=== PATIENT | female | born 1965 | race Caucasian/White ===

== ENCOUNTER → 2017-05-21 10:21 | Outpatient (CLI) | payer OTHER, SELFPAY ==
--- NOTE | 2017-05-21 10:35 | MM_ITS ---
MM Dig screening mamm BI w/CAD CAD Screening ORDERING PHYSICIAN : Boy Nguyen PATIENT AGE: 52 years GENDER: Female COMPARISON: Previous mammograms: February 2012 and 2012, January 2016, 2014. 2016 INDICATION: Routine screening. No new complaints. 52-year-old previous stereotactic biopsy left breast TECHNIQUE: Standard CC and MLO images were obtained. R2 CAD reviewed. FINDINGS: Moderate asymmetry of the breast again noted but no significant change since prior studies which are very helpful in this case. RIGHT BREAST:The fibroglandular tissue at the superior right breast again noted and similar to previous studies. LEFT BREAST:. No new areas of concern. Follow-up in one year. The minimal area of asymmetric density deep breast central and lateral on cc view is unchanged tiny metallic marker from previous stereotactic biopsy noted towards upper-outer quadrant left breast IMPRESSION: . No Significant New Areas of concern. No significant lesions evident radiographically. Follow-up in one year recommended . Moderate breast density with moderate asymmetry BI-RADS Category: 2 Benign Finding(s) RECOMMENDED FOLLOW-UP: 1YR - 1 YEAR FOLLOW-UP (A letter has been sent to the patient regarding results of the study.) A
== END ==
PROVIDERS: Family Provider Internal Medicine; PCP Internal Medicine; Visit Provider Internal Medicine
DX: Z12.31 Encounter for screening mammogram for malignant neoplasm of breast (principal)
CPT/HCPCS: 77067

== ENCOUNTER → 2017-06-16 16:42 | Outpatient (REF) | payer OTHER, SELFPAY ==
[2017-06-16 17:49] LABS: Potassium 4.1 mmoL/L (3.5-5.1)
[2017-06-18 12:18] LABS: Vitamin D 25 Hydroxy 30.6 ng/mL (30.0-100.0)
== END ==
LOC: LAB 16:42
PROVIDERS: Visit Provider Internal Medicine
DX: E87.6 Hypokalemia (principal); E83.32 Hereditary vitamin D-dependent rickets (type 1) (type 2); E55.9 Vitamin D deficiency, unspecified
CPT/HCPCS: 82652; 84132

== ENCOUNTER 2017-07-09 09:05 | Day surgery (SDC) | payer OTHER, SELFPAY ==
[2017-07-09] VITALS (16 sets, daily range): BP systolic 100–145; BP diastolic 49–85; PULSE 54–78; RESP 10–18; TEMP 36.7–36.8; O2SAT 95–100; BMI 28.3
--- NOTE | 2017-07-09 10:39 | HMH.SCOPE ---
- Procedure: Date: 07/09/17 Procedure Performed:: Colonoscopy Indications:: Screening Performing Provider:: Louis Gold MD Referring Provider:: Dr. Cabezas Sedation:: IV sedation with 9 mg of Versed and 200 mcg of fentanyl Procedure:: After informed consent was obtained, the patient was taken to the endoscopy suite. IV sedation ensued after she was transferred to the left lateral decubitus position. Digital rectal exam revealed no significant abnormality. The colonoscope was placed in addition. The entire colon was evaluated. Bowel preparation was moderate with irrigation and suctioning used to improve visualization. Moderate spasticity and tortuosity were encountered. No colonic masses or polypoid lesions were seen. The mucosa appeared normal throughout. The colonoscope was carefully removed and the patient was transferred to recovery. Findings:: Moderate bowel preparation Moderate spasticity Moderate tortuosity No mass lesions or polypoid lesions noted Specimens:: None Recommendations:: Repeat colonoscopy in 3-5 years secondary to moderate preparation, spasticity, and tortuosity. Complications:: No immediate Estimated blood obtained (mL): 0
== END 2017-07-09 11:28 | disposition home or self-care (01) ==
LOC: OUTP 09:06
PROVIDERS: Family Provider Internal Medicine; PCP Internal Medicine; Visit Provider Surgery
PROC: 0DJD8ZZ Inspection of Lower Intestinal Tract, Via Natural or Artificial Opening Endoscopic (ICD-10-PCS; CPT 45378; principal; 2017-07-09 09:30)
DX: Z12.11 Encounter for screening for malignant neoplasm of colon (principal); K56.2 Volvulus; K58.9 Irritable bowel syndrome, unspecified
CPT/HCPCS: 45378; 99152; 99153; J2405

== ENCOUNTER → 2019-03-14 08:41 | Outpatient (CLI) | payer OTHER, SELFPAY ==
--- NOTE | 2019-03-14 08:59 | XR_ITS ---
PROCEDURE: XR DEXA AXIAL SKELETON CLINICAL HISTORY: POST MENOPAUSAL COMPARISON: No exams were available for comparison FINDINGS: L1-L4 density is 1.343 grams/centimeters sq with a T-score of 1.4. Lowest hip density is in the left femoral neck at 1.080 grams/centimeters sq with a T-score of 0.3 IMPRESSION: Normal bone density. Suggest follow-up exam in a March 2021 Dictated by: River Morgan MD 03/14/2019 20:21 Electronically signed by River Morgan MD in [facility] 03/14/2019 20:21
== END ==
PROVIDERS: PCP Internal Medicine; Visit Provider Internal Medicine
DX: Z78.0 Asymptomatic menopausal state (principal)
CPT/HCPCS: 77080

== ENCOUNTER → 2020-02-22 08:26 | Outpatient (CLI) | payer OTHER, SELFPAY ==
--- NOTE | 2020-02-22 08:31 | XR_ITS ---
PROCEDURE: XR FOOT WT BEARING LT 3V CLINICAL INDICATION: pain COMPARISON: No exams were available for comparison FINDINGS: Prior bunionectomy with a screw at the distal aspect of the 1st metatarsal. Borderline pes planus. Mild osteoarthritic talonavicular joint. Other findings:None. IMPRESSION: Postsurgical changes with mild pes planus Dictated by: River Morgan MD 02/22/2020 16:18 River Morgan MD in [facility] 02/22/2020 16:18
--- NOTE | 2020-02-22 08:31 | XR_ITS ---
PROCEDURE: XR FOOT WT BEARING RT 3V CLINICAL INDICATION: pain COMPARISON: No exams were available for comparison FINDINGS: No fracture or dislocation. No lytic or blastic change. There is normal mineralization. Hallux valgus with osteoarthritis of the 1st MTP joint and bunion formation at the distal aspect of the 1st metatarsal. Other findings:Borderline pes planus IMPRESSION: Hallux valgus with osteoarthritis of the 1st MTP joint and bunion formation at the distal aspect of the 1st metatarsal. Dictated by: River Morgan MD 02/22/2020 16:17 River Morgan MD in [facility] 02/22/2020 16:17
== END ==
PROVIDERS: PCP Internal Medicine; Visit Provider Podiatrist
DX: M79.672 Pain in left foot (principal); M79.671 Pain in right foot
CPT/HCPCS: 73630

== ENCOUNTER → 2021-02-07 19:17 | Outpatient (CLI) | payer OTHER, SELFPAY | PROVIDERS: Visit Provider Nurse Practitioner Family | DX: Z20.822 Contact with and (suspected) exposure to COVID-19 (principal); J02.9 Acute pharyngitis, unspecified | CPT/HCPCS: C9803; U0003; U0005 ==

== ENCOUNTER → 2021-02-25 10:40 | Outpatient (CLI) | payer OTHER, SELFPAY ==
--- NOTE | 2021-02-25 10:49 | ECG_ITS ---
APPROVED REPORT Exam: Resting ECG HR:63 bpm ECG Measurements Heart Rate 63 AXES MN 150 P 25 QRSd 80 QRS 23 QT 412 T 25 QTc 421 Conclusion Normal sinus rhythm Normal ECG Electronically signed by : Boy Nguyen MD 02/25/2021 11:53:39
== END ==
PROVIDERS: PCP Internal Medicine; Visit Provider Internal Medicine
DX: R07.9 Chest pain, unspecified (principal); R00.2 Palpitations
CPT/HCPCS: 93005

== ENCOUNTER → 2021-03-06 07:57 | Outpatient (CLI) | payer OTHER, SELFPAY ==
--- NOTE | 2021-03-06 | CA_ITS ---
APPROVED REPORT Exam: Exercise Treadmill Technologist: Sapphire Martinez Ht: 5 ft 3 in Wt: 172 lbs BSA: 1.81 m2 HR: 70 bpm BP: 140/90 mmHg Indications: Palpitations, Atypical Chest Pain Medical History Medications: MeLOXICAM,,,,, Diclofenac,,,,, Stress Test Details Test: Nilson HR Resting HR: 80 bpm Max Heart Rate (APMHR): 164.689109 bpm Max HR Achieved: 149 bpm Target HR (85% APMHR): 139.646877 bpm % of APMHR: 90.85 Recovery HR: 88 bpm BP Resting BP: 140.0/90.0 mmHg Max BP: 165.0/92.0 mmHg Recovery BP: 141.0/101.0 mmHg ECG Resting ECG: Normal sinus rhythm Clinical Exercise duration: 09:00 min Highest Stage Achieved: Exercise capacity: 10.1 METs Stress ECG Conclusion Patient exercised 9:00 on Nilson Protocol. Test stopped due to untied shoe lace. Symptoms: Mild shortness of air and fatigue. No chest pain. Arrythmias/Ectopy: None ST-T Changes: Normal ST response to exercise. Conclusion: Normal GXT. GXT only (no imaging). Test Summary Stage 3 02:00 14.0 3.4 145 . . . . REST . . . . . . . Standing REST 03:53 0.0 0.0 80 . 140/ 90 . . Stage 1 01:00 10.0 1.7 94 . . . . Stage 1 02:00 10.0 1.7 98 . . . . Stage 1 03:00 10.0 1.7 102 . 150/ 90 . . Stage 2 01:00 12.0 2.5 119 . . . . Stage 2 02:00 12.0 2.5 120 . . . . Stage 2 03:00 12.0 2.5 126 . 165/ 92 . . Stage 3 01:00 14.0 3.4 140 . . . . Stage 3 02:00 14.0 3.4 145 . . . . Stage 3 03:00 14.0 3.4 146 . . . Stop exercise at 09:00 RECOVERY 01:00 0.0 0.0 123 . 160/ 90 . . RECOVERY 02:00 0.0 0.0 96 . 160/ 90 . . RECOVERY 03:00 0.0 0.0 90 . 159/104 . . RECOVERY 04:00 0.0 0.0 87 . 157/105 . . RECOVERY 05:00 0.0 0.0 100 . 157/105 . . RECOVERY 06:00 0.0 0.0 90 . 141/101 . . RECOVERY 06:04 0.0 0.0 90 . 141/101 . . Electronically signed by : Boy Nguyen MD 03/22/2021 16:20:17
== END ==
PROVIDERS: PCP Internal Medicine; Visit Provider Internal Medicine
DX: R00.2 Palpitations (principal); R07.89 Other chest pain
CPT/HCPCS: 93017; 93306

== ENCOUNTER → 2021-03-12 17:13 | Outpatient (CLI) | payer OTHER, SELFPAY | PROVIDERS: PCP Internal Medicine; Visit Provider Internal Medicine | DX: R07.89 Other chest pain (principal) | CPT/HCPCS: 93225; 93226 ==

== ENCOUNTER → 2021-11-29 10:40 | Outpatient (CLI) | payer OTHER, SELFPAY ==
--- NOTE | 2021-11-29 10:48 | XR_ITS ---
FINAL REPORT CLINICAL HISTORY: hip pain FINDINGS: RIGHT HIP Two views of the right hip with an AP pelvis demonstrate no acute fracture or dislocation. The joint spaces appear normal. The visualized bony structures are well aligned. No soft tissue abnormality is seen. IMPRESSION: No acute bony abnormality. Reviewed, Interpreted and Dictated by Thad Miles MD Transcribed by Crystal Tao Authenticated and [facility]
== END ==
PROVIDERS: PCP Internal Medicine; Visit Provider Orthopaedic Surgery
DX: M25.551 Pain in right hip (principal)
CPT/HCPCS: 73502

== ENCOUNTER → 2022-08-08 17:01 | Outpatient (CLI) | payer OTHER, SELFPAY ==
[2022-08-08 17:46] LABS: Anion Gap 10.9 mEq/L (5-15); Blood Urea Nitrogen 15 mg/dl (7-17); Calcium 8.9 mg/dl (8.4-10.2); Carbon Dioxide 29 mmol/L (22.0-30.0); Chloride 104 mmol/L (98-107); Estimated Glomerular Filt Rate 86 ml/min (>60); GFR (African American) 104 ML/MIN (>60); Glucose 74 mg/dl (74-100); Potassium 3.9 mmoL/L (3.5-5.1); Sodium 140 mmol/L (136-145)
== END ==
PROVIDERS: PCP Internal Medicine; Visit Provider Internal Medicine
DX: I10 Essential (primary) hypertension (principal)
CPT/HCPCS: 80048

== ENCOUNTER 2024-11-08 12:48 | Outpatient (CLI) | payer OTHER, SELFPAY ==
--- OUTSIDE RECORDS SUMMARY | 2024-11-08 12:54 | XMS_ITS | Clinical Summary ---
Author Organization [facility] Address [address] [place] [address] Care Team Providers Care Adult Basic Studies Teacher Name Role Phone Boy Nguyen MD Primary Care Provider [phone] Allergies Active Allergy Reactions Criticality Noted Date Comments Penicillins Rash Low 01/21/2016 Medications No known medications Active Problems No known active problems Family History Medical History Relation Name Comments Cancer Father Relation Name Status Comments Father Social History Tobacco Use Types Packs/Day Years Used Date Smoking Tobacco: Never Smokeless Tobacco: Never Alcohol Use Standard Drinks/Week Comments No 0 (1 standard drink = 0.6 oz pur e alcohol) Abuse Screen Answer Date Recorded Unsafe at Home or Work/School Not on file Feels Threatened by Someone? Not on file 12/2022 Does Anyone Keep You from Co ntacting Others or Doint Things Outside the Home? Not on file 01/19/2023 Physical Sign of Abuse Present Not on file 1 Housing Stability Answer Date Recorded Current Living Arrangements Not on file 12/2022 Potentially Unsafe Housing Conditions Not on bobby e 01/19/2023 Family and Community Support Answer Almas e Recorded Help with Day-to-Day Activities Not on file 01/19/2023 Lonely or Isolated Not on file 01/19/2023 Employment Answer Date Recorded Do you want help finding or keeping work or a anastasia b? Not on file 01/19/2023 Disabilities Answer Date Recorded Concentrating, Remembering, or Making Decisions Difficulty Not on file 01/19/2023 Doing Errands Independently Difficulty Not on fi le 01/19/2023 Education Answer Date Recorded Help with school or training? Not on file Preferred Language Not on file 01/19/2023 Comments No Sex and Gender Information Value Date Recorded Sex Assigned at Not on file Legal Sex Female 10:18 AM EDT Gender Identity Not on file Sexual Orientation Not on file Last Filed Vital Signs Vital Sign Reading Time Taken Comments Blood Pressure 118/78 10/23/2017 1:29 PM EDT Pulse 69 10/23/2017 1:29 PM EDT Temperature 36.6 C (97.8 F) 10/23/2017 1:29 PM EDT Respiratory Rate 15 10/23/2017 1:29 PM EDT Oxygen Saturation 99% 10/23/2017 1:29 PM EDT Inhaled Oxygen Concentration - - Weight 72.8 kg (160 lb 6.4 oz) 10/23/2017 1:29 P M EDT Height 160 cm (5' 3 ) 10/23/2017 1:29 PM EDT Body Mass Index 28.41 10/23/2017 1:29 PM EDT Plan of Treatment Health Maintenance Due Date Last Done Comments Annual Gynecologic Pelvic and Breast Exam 1964 TDAP/TD VACCINES (1 - Tdap) 1983 MAMMOGRAM 2004 COLOGUARD 2009 COLON CANCER SCREENING 5 YEAR SIGMOIDOSCOPY 2009 COLONOSCOPY 2009 [address] CANCER SCREENING [address] COLONOGRAPHY 2009 FECAL OCCULT BLOOD TEST 2009 FIT Testing (1 year) 2009 Pneumococcal Vaccine 50+ (1 of 1 - PCV) 2014 ZOSTER VACCINE (1 of 2) 2014 ANNUAL PHYSICAL 12/25/2016 HEPATITIS C SCREENING 12/25/2016 COVID-19 Vaccine ( - 2023- season) 2023 INFLUENZA VACCINE 01/11/2025 Insurance Care Teams Adult Basic Studies Teacher Relationship Specialty Start Date End Date Boy Nguyen MD [address] [facility] [address] [place] [address] PCP - General Internal Medicine 12/13/15
--- OUTSIDE RECORDS SUMMARY | 2024-11-08 12:54 | XMS_ITS | Data Portability ---
Author Organization [facility] Kassie NAKIA ADMIN Address [address] [place] [id number] Assessment No assessment recorded. Plan of Treatment Reminders Order Date Submit Date Provider Last Modified By Organization Details Last Modified Time Details Appointments None recorded. Lab None recorded. Referral None recorded. Procedures None recorded. Surgeries None recorded. Imaging None recorded. Medication Orders Saxenda 3 mg/0.5 mL (18 mg/3 mL) subcutaneou s pen injector 2021 022 [facility]) #[id number], [address], [facility], [place], [place], [phone], 15:47:47 Patient TargetsNo targets recorded. Patient InstructionsNo instructions recorded. Reason for Referral None Reported. Procedures Surgical History Date Name Laterality Status Provider Name and Address Organization Details Recorded Time Total Hysterectomy completed Rebecc a [place] [facility] & [place] 03/24/2022 15:25:48 laparoscopic sleeve gastrectomy completed Maggy [place] [facility] [place] 03/24/2022 15:25:55 Colonoscopy completed Maggy [place] [facility] [place] 03/24/2022 15:26:09 EGD completed Maggy [place] [facility] [place] 03/24/2022 15:26:13 Hernia Repair completed Maggy [place] [facility] [place] 03/24/2022 15:26:43 abdominoplasty completed Maggy [place] [facility] & [place] 03/24/2022 15:26:50 Imaging Results None recorded. Procedure Notes None recorded. Medical Equipment None Reported. Allergies No known drug allergies Medications Name Sig Start Date Stop Date Status Note LastModified by Organization Details LastModified Time Prescription - Prior Authorizatio n Request INJECT 3MG UNDER THE SKIN ONCE DAILY DIRECTED . 03/24 completed Not Available Not Available Not Available amoxicillin 500 mg capsule TAKE 1 CAPSULE BY MOUTH 3 TIMES DAILY 03/24 completed Not Available Not Available Not Available hydrocodone 5 mg-acetamino phen 325 mg tablet TAKE 1 TABLET EVERY 4 TO 6 HOURS NEEDED FOR PAIN. 03/24 completed Not Available Not Available Not Available valsartan 80 mg-hydrochlo rothiazide 12.5 mg tablet active Not Available Not Available Not Available multivitamin active Not Available Not Available Not Available Saxenda 3 mg/0.5 mL (18 mg/3 mL) subcutaneous pen injector active Not Available Not Available Not Available Allergy active Not Available Not Avail able Not Available Vitals Date Recorded Body height Body temperature Heart rate Body mass index (BMI) Body weight Systolic And Diastolic Provider Name and Address Organization Details Last Updated DateTime 2 160.02 cm 97.7 [degF] 73 /min 32.2 kg/m2 54020.0 9 g 180/120 mm[Hg] Maggy Black [facility] [place] & [place] 2 15:24:36 Social History None recorded. Functional Status Question Answer Note LastModified by Organizat ion Details LastModified Time Do you use any illicit or recreational drugs? No [email or web address] Information not available 03/24/2022 What is your level of alcohol consumption? None [email or web address] Information not available 03/24/2022 Mental Status None recorded. Family History Relationship Description Onset Age of this Age Resolved Age Notes LastModified by Organization Details LastModified Time Brother Disorder of endocrine system pt. added direct ly (03/24) [email or web address] Not available 03/24/2022 15:03:22 Brother Hypertensive disorder pt. added direct ly (03/24) [email or web address] Not available 03/24/2022 15:03:35 Brother Cerebrovascu lar accident pt. added direct ly (03/24) [email or web address] Not available 03/24/2022 15:03:54 Sister Disorder of endocrine system pt. added direct ly (03/24) [email or web address] Not available 03/24/2022 15:03:22 Sister Hypertensive disorder pt. added direct ly (03/24) [email or web address] Not available 03/24/2022 15:03:35 Mother Hypertensive disorder pt. added direct ly (03/24) [email or web address] Not available 03/24/2022 15:03:35 Medical History Condition Response Headaches Y Hypertension Y Gynecological HistoryNo gynecological history recorded. Obstetrics History GPAL:G 0 P 0 0 0 0 Past Encounters Encounter ID Performer Location Encounter Start Date Encounter Closed Date Diagnosis/Indication Diagnosis SNOMED-CT Code Diagnosis ICD10 Code Diagnosis Note [id number] RE[facility] [address] [facility] [address] [place] [phone] 03/24/2022 15:10:20 03/24/2022 16:05:11 Hypertensive disorder 80167930 I10 elevated BP in office today. Asymptomat ic. Pt advised to discuss HTN management w PCP Vitamin D deficiency 347 60068 E55.9 Patient advised to increase daily vitamin-D intake. Will recheck bariatric lab panel in 3-4 months Obesity 636978097 E66.9 We will attempt to restart Saxenda. Discussed ramping schedule with patient. She may react lower if needed. Discussed tracking carbs calories and protein. Advised 4 small meals daily consisting of a 1000 calories and 70 g of protein.Lo ng discussion today of [employer] results including PBF(percen t body fat) SMM (skeletal muscle mass) Visceral fat level level BMR Segmental Fat Analysis and Segmental Lean Analysis.E ncouraged pt to take minimal calories as per BMR and to anticipate changes in SMM and PBF values not just total weight. Repeat MYESHA in 2-3mth suggested Health Concerns Section Related Observation LastModified by Organization Detai ls LastModified Time None Recorded Concern Status LastModified by Organization Details LastModified Time None Recorded Advance Directives Directive None Recorded Payers Insurance Date Sequence Insurance Name Policy Number Policy Maya Covered Member ID Maya Member ID Guarantor Name 02/18/2021 2 [employer] [facility] (MEDICAID HMO) Kim Bauer [id number] Kim Bauer 11/19/2020 2 [employer] (HMO) [id number] Kim Bauer [id number] Kim M Bauer 03/21/2022 1 [employer] (POS) [id number] Kim M Bauer [id number] Kim M Bauer OBGyn Episode No OBEpisode recorded.
--- OUTSIDE RECORDS SUMMARY | 2024-11-08 12:54 | XMS_ITS | Clinical Summary ---
Author Organization Healthcare Address [address] [place] [address] Care Team Providers Care Legal Associate Name Role Phone Pcp, No Primary Care Provider Unavailabl e Social History Tobacco Use Types Packs/Day Years Used Date Smoking Tobacco: Never Assessed Comments Unknown Sex and Gender Information Value Date Recorded Sex Assigned at Not on file Legal Sex Female 7:38 PM EDT Gender Identity Not on file Sexual Orientation Not on file Plan of Treatment Health Maintenance Due Date Last Done Comments [facility]-Depression Screening 1964 [facility]-/Child/Adol SDOH Screenings 1964 [facility]- SDOH Screenings 1982 [facility]-Adult SDOH Screenings 1982 [facility]-DTaP,Tdap,and Td Vaccine s (1 - Tdap) 1983 [facility]-Pap Smear 1985 [facility]-Cervical Cancer Screening 1994 [facility]-HPV/Cotest 1994 CT Colonography 2009 Colonoscopy 2009 FIT-DNA 2009 FIT 2009 FOBT 2009 Sigmoidoscopy 2009 [facility]-Colorectal Cancer Screening 2009 [facility]-Pneumococcal Vaccine: 50 + Years (1 of 1 - PCV) 2014 [facility]-Zoster Vaccines (1 of 2) 2014 [id number] Vaccine (3 - season) 2023 07/20/2020, 06/14/2020 [facility]-Influenza Vaccine (#1) 12/12/202401/13, 02/05/2017 [facility]-RSV Vaccine: 60+ Years o r (1 - 1-dose 75+ series) 2039 HPV Vaccines Aged Out No longer eligi ble based on patient's age to complete this topic [facility]-HIB Vaccines Aged Out No longer e ligible based on patient's age to complete this topic [facility]-Hepatitis A Vaccines Aged Out No longer eligible based on patient's age to complete this topic [facility]-IPV Vaccines Aged Out No longer e ligible based on patient's age to complete this topic [facility]-Rotavirus Vaccines Aged Out No lo nger eligible based on patient's age to complete this topic Insurance [employer] Care Teams Legal Associate Relationship Specialty Start Date End Date Pcp, Crystal [address] [place] [address] PCP - General 04/13/20
--- NOTE | 2024-11-08 13:00 | US_ITS ---
FINAL REPORT TECHNIQUE: Ultrasound images of the kidneys were obtained. CLINICAL HISTORY: .LEFT FLANK PAIN COMPARISON: None FINDINGS: RENAL ULTRASOUND Limited images of the liver parenchyma demonstrate normal echogenicity. The right kidney measures 10.8 cm in length. No hydronephrosis, mass, or stone. Normal cortical echogenicity and thickness. The left kidney measures 9.8 cm in length. No hydronephrosis, mass, or stone. Normal cortical echogenicity and thickness. IMPRESSION: Morphologically normal kidneys bilaterally. Reviewed, Interpreted and Dictated by Drea Carter MD Transcribed by Em Maurice Authenticated and [facility]
== END 2024-11-08 23:59 | disposition home or self-care (01) ==
LOC: RAD 12:48
PROVIDERS: PCP Internal Medicine; Visit Provider Internal Medicine
DX: N12 Tubulo-interstitial nephritis, not specified as acute or chronic (principal)
CPT/HCPCS: 76770

== ENCOUNTER 2024-12-13 16:54 | Outpatient (CLI) | payer OTHER, SELFPAY ==
[2024-12-13 17:02] LABS: Influenza A, PCR Not Detected (NotDetected); Influenza B, PCR Not Detected (NotDetected)
[2024-12-13 19:13] LABS: Coronavirus 19, PCR Detected (NotDetected)
--- OUTSIDE RECORDS SUMMARY | 2024-12-14 09:56 | XMS_ITS | Clinical Summary ---
Author Organization Healthcare Address [address] [place] [address] Care Team Providers Care Tube Cutter Operator Name Role Phone Pcp, No Primary Care [...] 2014 [facility]-Zoster Vaccines (1 of 2) 2014 [id number] Vaccine (3 - season) 2023 07/20/2020, 06/14/2020 [...] complete this topic Insurance [employer] Care Teams Tube Cutter Operator Relationship Specialty Start Date End Date Pcp, Crystal [address] [place] [address] PCP - General 04/13/20
--- OUTSIDE RECORDS SUMMARY | 2024-12-14 09:56 | XMS_ITS | Clinical Summary ---
Author Organization [facility] Address [address] [place] [address] Care Team Providers Care Senior Credit Analyst Name Role Phone Boy Nguyen MD Primary Care Provider [phone] Allergies Active Allergy Reactions Criticality Noted Date [...] 2023 INFLUENZA VACCINE 01/11/2025 Insurance Care Teams Senior Credit Analyst Relationship Specialty Start Date End Date Boy Nguyen MD [address] [facility] [address] [place] [address] PCP - General Internal Medicine 12/13/15
== END 2024-12-13 23:59 | disposition home or self-care (01) ==
LOC: LAB.DROPOF 12-14 09:50
PROVIDERS: PCP Internal Medicine; Visit Provider Internal Medicine
DX: J06.9 Acute upper respiratory infection, unspecified (principal); B34.9 Viral infection, unspecified
CPT/HCPCS: 87631

== ENCOUNTER 2025-03-01 09:20 | Outpatient (CLI) | payer OTHER, SELFPAY ==
[2025-03-01 14:17] LABS: Hematocrit 39.8 % (37.0-47.0); Hemoglobin 13.0 g/dL (12.2-16.2); Immature Granulocytes % 0 %; Mean Corpuscular HGB Conc 32.7 g/dL (31.8-35.4); Mean Corpuscular Hemoglobin 30.7 pg (27.0-31.2); Mean Corpuscular Volume 94.1 fl (81-99); Nucleated Red Blood Cells % 0 %; Platelet Count 257 K/mm3 (142-424); Red Blood Count 4.23 M/mm3 (4.20-5.40); Red Cell Distribution Width-SD 42.3 fL; White Blood Count 3.2 K/mm3 (4.8-10.8)
[2025-03-01 15:22] LABS: Alanine Aminotransferase 21 U/L (12-78); Albumin Level 3.9 g/dl (3.5-5.0); Albumin/Globulin Ratio 1.8 (1.1-1.8); Alkaline Phosphatase 74 U/L (38-126); Anion Gap 7.2 mEq/L (5-15); Aspartate Amino Transferase 34 U/L (14-36); Bilirubin,Total 1.1 mg/dl (0.2-1.3); Blood Urea Nitrogen 14 mg/dl (7-17); Calcium 9.1 mg/dl (8.4-10.2); Carbon Dioxide 27 mmol/L (22.0-30.0); Chloride 106 mmol/L (98-107); Cholesterol 216 mg/dl (140-200); Creatinine,Serum 0.60 mg/dl (0.52-1.04); Estimated Glomerular Filt Rate 102 ml/min (>60); GFR (African American) 123 ML/MIN (>60); Globulin 2.2 g/dL (1.3-3.2); Glucose 77 mg/dl (74-100); HDL Cholesterol 77 mg/dl (40-60); Potassium 4.2 mmoL/L (3.5-5.1); Sodium 136 mmol/L (136-145); Total Protein,Serum 6.1 g/dl (6.3-8.2); Triglycerides 51 mg/dl (30-150)
[2025-03-01 15:54] LABS: Thyroid Stimulating Hormone 1.63 uIU/mL (0.465-4.68)
[2025-03-01 16:13] LABS: Vitamin B12 664 pg/mL (239-931)
--- OUTSIDE RECORDS SUMMARY | 2025-03-02 10:35 | XMS_ITS | Clinical Summary ---
Author Organization Healthcare Address [address] [place] [address] Care Team Providers Care Insurance Advisor Name Role Phone Pcp, No Primary Care [...] 2014 [facility]-Zoster Vaccines (1 of 2) 2014 [id number] Vaccine (3 - 2024- season) 2024 07/20/2020, 06/14/2020 [facility]-Influenza Vaccine (#1) 12/12/202401/13, 02/05/2017 [...] complete this topic Insurance [employer] Care Teams Insurance Advisor Relationship Specialty Start Date End Date Pcp, Crystal [address] [place] [address] PCP - General 04/13/20
--- OUTSIDE RECORDS SUMMARY | 2025-03-02 10:35 | XMS_ITS | Clinical Summary ---
Author Organization [facility] Address [address] [place] [address] Care Team Providers Care Tub Mender Name Role Phone Boy Nguyen MD Primary Care Provider [phone] Allergies Active Allergy Reactions Criticality Noted Date [...] ANNUAL PHYSICAL 12/25/2016 HEPATITIS C SCREENING 12/25/2016 INFLUENZA VACCINE 11/11/2024 Insurance Care Teams Tub Mender Relationship Specialty Start Date End Date Boy Nguyen MD [address] [facility] [address] [address] PCP - General Internal Medicine 12/13/15
== END 2025-03-01 23:59 ==
LOC: LAB.DROPOF 03-02 09:38
PROVIDERS: PCP Internal Medicine; Visit Provider Internal Medicine
DX: E78.5 Hyperlipidemia, unspecified (principal); I10 Essential (primary) hypertension; R53.83 Other fatigue; Z98.84 Bariatric surgery status
CPT/HCPCS: 80053; 80061; 82607; 84443; 85025

== ENCOUNTER 2025-03-29 15:30 | Outpatient (CLI) | payer OTHER, SELFPAY ==
[2025-03-29 17:21] LABS: Hematocrit 37.6 % (37.0-47.0); Hemoglobin 12.7 g/dL (12.2-16.2); Immature Granulocytes % 0.2 %; Mean Corpuscular HGB Conc 33.8 g/dL (31.8-35.4); Mean Corpuscular Hemoglobin 31.9 pg (27.0-31.2); Mean Corpuscular Volume 94.5 fl (81-99); Nucleated Red Blood Cells % 0 %; Platelet Count 242 K/mm3 (142-424); Red Blood Count 3.98 M/mm3 (4.20-5.40); Red Cell Distribution Width-SD 43.2 fL; White Blood Count 4.2 K/mm3 (4.8-10.8)
--- OUTSIDE RECORDS SUMMARY | 2025-03-30 12:08 | XMS_ITS | Clinical Summary ---
Author Organization [facility] Address [address] [place] [address] Care Team Providers Care Branch Service Specialist Name Role Phone Boy Nguyen MD Primary Care Provider [phone] Allergies Active Allergy Reactions Criticality Noted Date [...] 10/23/2017 1:29 PM EDT Plan of Treatment Upcoming Encounters Date Type Department Care Team (Late st Contact Info) Description 04/03/2025 11:00 AM EST Treatment [facility] [address] [facility] [address] [place] [address] Kristie Martinez, PT [address] [place] [address] Health Maintenance Due Date Last Done Comments Annual Gynecologic Pelvic and Breast Exam 1964 TDAP/TD VACCINES (1 - Tdap) 1983 PAP SMEAR 1985 MAMMOGRAM 2004 COLOGUARD 2009 COLON CANCER SCREENING 5 YEAR SIGMOIDOSCOPY 2009 COLONOSCOPY 2009 COL[address]ECTAL CANCER SCREENING 2009 CT COLONOGRAPHY 2009 FECAL OCCULT BLOOD TEST 2009 FIT Testing (1 year) 2009 Pneumococcal Vaccine 50+ (1 of 1 - PCV) 2014 ZOSTER VACCINE (1 of 2) 2014 ANNUAL PHYSICAL 12/25/2016 HEPATITIS C SCREENING 12/25/2016 INFLUENZA VACCINE 11/11/2024 Insurance [employer] on file Care Teams Branch Service Specialist Relationship Specialty Start Date End Date Boy Nguyen MD [address] [facility] [address] [address] PCP - General Internal Medicine 12/13/15
--- OUTSIDE RECORDS SUMMARY | 2025-03-30 12:08 | XMS_ITS | Clinical Summary ---
Author Organization Healthcare [place] [address] Care Team Providers Care Wheel Blocker Name Role Phone Pcp, No Primary Care [...] 2014 [facility]-Zoster Vaccines (1 of 2) 2014 [id number] Vaccine (3 - 2024- season) 2024 07/20/2020, 06/14/2020 [facility]-Influenza Vaccine (#1) 12/12/202401/13, 02/05/2017 [facility]-RSV Vaccine: 60+ Years o r (1 - 1-dose 75+ series) 2039 HPV Vaccines (No Doses Required) Completed [facility]-HIB Vaccines Aged Out No longer e [...] complete this topic Insurance [employer] Care Teams Wheel Blocker Relationship Specialty Start Date End Date Pcp, Crystal [address] [place] [address] PCP - General 04/13/20
== END 2025-03-29 23:59 | disposition home or self-care (01) ==
LOC: LAB.DROPOF 03-30 10:44
PROVIDERS: PCP Internal Medicine; Visit Provider Internal Medicine
DX: R89.9 Unspecified abnormal finding in specimens from other organs, systems and tissues (principal)
CPT/HCPCS: 85025